=== PATIENT | male | born 1975 | race Two or more races ===

== ENCOUNTER 2022-03-28 08:53 | Emergency (ER) | payer MEDICAID ==
[2022-03-28] MEDS: Aspirin 81 MG Tab.Chew PO ONE (08:53)
[2022-03-28] MEDS: Nitroglycerin 0.4 MG Tab.SL SL ONE (09:09)
[2022-03-28] MEDS: Albuterol/Ipratropium 3.0-0.5 MG/3 ML Neb Soln NEB ONE (10:00)
[2022-03-28] MEDS: HYDROmorphone 2 MG/ML Syringe IVPUSH ONE (10:03)
[2022-03-28] MEDS: Albuterol/Ipratropium 3.0-0.5 MG/3 ML Neb Soln ONE (10:05)
[2022-03-28] MEDS: HYDROmorphone 2 MG/ML Syringe ONE (10:05)
[2022-03-28] MEDS: Dexamethasone 4 MG/ML SDV IVPUSH ONE (10:58)
[2022-03-28] MEDS: Dexamethasone 4 MG/ML 5 ML MDV IVPUSH ONE (10:58)
[2022-03-28] MEDS ORDERED: Dexamethasone 4 MG/ML SDV ONE (11:06)
== END 2022-03-28 14:00 | disposition home or self-care (01) ==
LOC: LB.ED 08:53
DX: J06.9 Acute upper respiratory infection, unspecified (principal); Z88.7 Allergy status to serum and vaccine; Z88.8 Allergy status to other drugs, medicaments and biological substances; Z79.899 Other long term (current) drug therapy; Z79.4 Long term (current) use of insulin; Z91.09 Other allergy status, other than to drugs and biological substances
CPT/HCPCS: 36415; 71045; 71250; 80053; 81001; 83880; 84484; 85025; 85379; 85610; 85730; 93005; 94640; 96374; 96375; 99285-25; A9270-GY; J1100; J1170; J7620

== ENCOUNTER 2022-04-17 13:10 | Emergency (ER) | payer MEDICAID | END 2022-04-17 15:05 | disposition home or self-care (01) | LOC: LB.ED 13:10 | DX: K08.89 Other specified disorders of teeth and supporting structures (principal); E11.9 Type 2 diabetes mellitus without complications; J45.909 Unspecified asthma, uncomplicated; Z79.4 Long term (current) use of insulin; Z88.7 Allergy status to serum and vaccine; Z88.8 Allergy status to other drugs, medicaments and biological substances | CPT/HCPCS: 99282 ==

== ENCOUNTER 2022-04-23 14:41 | Emergency (ER) | payer MEDICAID ==
[2022-04-23] MEDS ORDERED: Acetaminophen/HYDROcodone 325-5 MG Tab ONE (15:30)
[2022-04-23] MEDS ORDERED: Lidocaine 1% with EPINEPHrine 1:100,000 50 ML MDV INJECT ONE (15:35)
== END 2022-04-23 16:00 | disposition home or self-care (01) ==
LOC: LB.ED 14:41
DX: K08.89 Other specified disorders of teeth and supporting structures (principal); E11.9 Type 2 diabetes mellitus without complications; J45.909 Unspecified asthma, uncomplicated; Z79.4 Long term (current) use of insulin; Z91.048 Other nonmedicinal substance allergy status; Z88.6 Allergy status to analgesic agent; Z88.7 Allergy status to serum and vaccine
CPT/HCPCS: 64400; 99282; 99282-25; A9270-GY

== ENCOUNTER 2022-07-10 08:33 | Emergency (ER) | payer MEDICAID ==
[2022-07-10] MEDS ORDERED: methylPREDNISolone Sodium Succinate 125 MG/2 ML SDV ONE (09:05)
[2022-07-10] MEDS ORDERED: Albuterol/Ipratropium 3.0-0.5 MG/3 ML Neb Soln ONE (09:05)
[2022-07-10] MEDS ORDERED: methylPREDNISolone Sodium Succinate 125 MG/2 ML SDV IM ONE (09:06)
[2022-07-10] MEDS ORDERED: Albuterol/Ipratropium 3.0-0.5 MG/3 ML Neb Soln NEB ONE (09:07)
== END 2022-07-10 10:50 | disposition home or self-care (01) ==
LOC: LB.ED 08:33
DX: J45.901 Unspecified asthma with (acute) exacerbation (principal); E11.9 Type 2 diabetes mellitus without complications; Z88.7 Allergy status to serum and vaccine; Z88.8 Allergy status to other drugs, medicaments and biological substances; Z79.4 Long term (current) use of insulin; Z79.899 Other long term (current) drug therapy
CPT/HCPCS: 96372; 99283; 99284; J2930; J7620

== ENCOUNTER 2022-10-06 20:43 | Emergency (ER) | payer MEDICAID ==
[2022-10-06] MEDS ORDERED: Albuterol/Ipratropium 3.0-0.5 MG/3 ML Neb Soln ONE (21:34)
[2022-10-06] MEDS ORDERED: Albuterol/Ipratropium 3.0-0.5 MG/3 ML Neb Soln NEB ONE (21:45)
[2022-10-06 22:03] LABS: BASOPHILS ABSOLUTE AUTO 0.06 K/uL (0.02-0.10); BASOPHILS PERCENT AUTO 0.7 % (0.0-0.5); EOSINOPHILS ABSOLUTE AUTO 0.86 K/uL (0.04-0.40); EOSINOPHILS PERCENT AUTO 10.4 % (1.0-5.0); HEMATOCRIT 40.6 % (40.0-54.0); LYMPHOCYTES ABSOLUTE AUTO 3.05 K/uL (1.50-4.00); LYMPHOCYTES PERCENT AUTO 36.9 % (20.0-40.0); MEAN CORPUSCULAR HEMOGLOBIN 30.1 pg (27.0-32.0); MEAN CORPUSCULAR HGB CONC 36.9 g/dL (31.0-35.0); MEAN CORPUSCULAR VOLUME 82 fL (76-96); MEAN PLATELET VOLUME 10.7 fL (6.0-10.0); MONOCYTES ABSOLUTE AUTO 0.83 K/uL (0.20-0.80); NEUTROPHILS ABSOLUTE AUTO 3.46 K/uL (2.00-7.50); PLATELET COUNT,PLT 208 K/uL (150-400); RED BLOOD CELL COUNT 4.98 M/uL (4.50-6.50); RED CELL DISTRIBUTION WIDTH 12.4 % (11.0-16.0); WHITE BLOOD CELL COUNT,WBC 8.3 K/uL (4.0-11.0)
[2022-10-06 22:14] LABS: A/G RATIO 0.8 (0.8-2.0); ALBUMIN 3.5 g/dL (3.4-5.0); ANION GAP 17.9 mmol/L (5.0-15.0); BILIRUBIN TOTAL 0.9 mg/dL (0.0-1.0); BUN/CREATININE RATIO 19.8 (6-25); CALCIUM 9.2 mg/dL (8.5-10.1); CARBON DIOXIDE,CO2 19.8 mmol/L (21.0-32.0); CREATININE 1.26 mg/dL (0.70-1.30); EST CRCL DRUG DOSING (CG) 70.87 mL/min; POTASSIUM,K 3.7 mmol/L (3.5-5.1)
[2022-10-06] MEDS ORDERED: Budesonide 0.5 MG/2 ML Neb Susp NEB ONE (22:16)
[2022-10-06] MEDS ORDERED: methylPREDNISolone Sodium Succinate 125 MG/2 ML SDV ONE (22:16)
[2022-10-06] MEDS ORDERED: Budesonide 0.5 MG/2 ML Neb Susp ONE ×2 (22:17→22:30)
[2022-10-06] MEDS ORDERED: methylPREDNISolone Sodium Succinate 125 MG/2 ML SDV IM ONE (22:24)
[2022-10-06] MEDS ORDERED: Montelukast 10 MG Tab ONE (22:30)
== END 2022-10-06 22:45 | disposition home or self-care (01) ==
LOC: LB.ED 20:43
DX: J45.42 Moderate persistent asthma with status asthmaticus (principal); I10 Essential (primary) hypertension; E11.9 Type 2 diabetes mellitus without complications; Z79.4 Long term (current) use of insulin; Z79.899 Other long term (current) drug therapy; Z91.09 Other allergy status, other than to drugs and biological substances
CPT/HCPCS: 36415; 71045; 80053; 85025; 94640; 96372; 99284; J2930; 99283; A9270-GY; J7620

== ENCOUNTER 2023-02-27 11:34 | Emergency (ER) | payer MEDICAID ==
[2023-02-27] MEDS ORDERED: Sodium Chloride 0.9% 10 ML Syringe FLUSH PRN (12:01)
[2023-02-27 12:15] LABS: BASOPHILS ABSOLUTE AUTO 0.05 K/uL (0.02-0.10); BASOPHILS PERCENT AUTO 0.6 % (0.0-0.5); EOSINOPHILS PERCENT AUTO 9.1 % (1.0-5.0); HEMATOCRIT 39.4 % (40.0-54.0); HEMOGLOBIN 14.3 g/dL (13.0-18.0); LYMPHOCYTES ABSOLUTE AUTO 2.64 K/uL (1.50-4.00); LYMPHOCYTES PERCENT AUTO 34.3 % (20.0-40.0); MEAN CORPUSCULAR HEMOGLOBIN 29.7 pg (27.0-32.0); MEAN CORPUSCULAR HGB CONC 36.3 g/dL (31.0-35.0); MEAN CORPUSCULAR VOLUME 82 fL (76-96); MEAN PLATELET VOLUME 10.4 fL (6.0-10.0); MONOCYTES ABSOLUTE AUTO 0.83 K/uL (0.20-0.80); MONOCYTES PERCENT AUTO 10.8 % (3.0-10.0); NEUTROPHILS ABSOLUTE AUTO 3.48 K/uL (2.00-7.50); NEUTROPHILS PERCENT AUTO 45.2 % (45.0-70.0); PLATELET COUNT,PLT 212 K/uL (150-400); RED BLOOD CELL COUNT 4.81 M/uL (4.50-6.50); WHITE BLOOD CELL COUNT,WBC 7.7 K/uL (4.0-11.0)
[2023-02-27] MEDS: Sodium Chloride 0.9% 1,000 ML IV SCH (12:25)
[2023-02-27 12:35] LABS: A/G RATIO 1.1 (0.8-2.0); ALBUMIN 3.5 g/dL (3.4-5.0); ANION GAP 15.7 mmol/L (5.0-15.0); BUN/CREATININE RATIO 17.9 (6-25); CALCIUM 9.2 mg/dL (8.5-10.1); CARBON DIOXIDE,CO2 21.7 mmol/L (21.0-32.0); CREATININE 1.06 mg/dL (0.70-1.30); EST CRCL DRUG DOSING (CG) 80.55 mL/min; POTASSIUM,K 3.4 mmol/L (3.5-5.1); PROTEIN TOTAL,TP 6.8 g/dL (6.4-8.2)
[2023-02-27 12:36] LABS: APPEARANCE,URINE CLEAR (CLEAR); BILIRUBIN,URINE NEGATIVE (NEGATIVE); COLOR,URINE YELLOW; GLUCOSE,URINE 500 mg/dL (NEGATIVE); KETONES,URINE NEGATIVE (NEGATIVE); LEUKOCYTE ESTERASE,URINE NEGATIVE (NEGATIVE); NITRITE,URINE NEGATIVE (NEGATIVE); OCCULT BLOOD,URINE NEGATIVE (NEGATIVE); PH,URINE 6.5 (5.0-8.0); PROTEIN,URINE NEGATIVE (NEGATIVE); UROBILINOGEN,URINE 0.2 E.U./dL (0.2-1.0)
[2023-02-27 12:37] LABS: MAGNESIUM 1.5 mg/dL (1.8-2.4); PHOSPHORUS 1.3 mg/dL (2.5-4.9)
[2023-02-27] MEDS ORDERED: Sodium Phosphate 15 mMole/5 ML SDV IV STA (13:08)
[2023-02-27] MEDS: Magnesium Sulfate/Water 50 ML IV ONE (13:28)
[2023-02-27] MEDS: Magnesium Sulfate/Water 2 GM in Premix Bag 1 BAG IV ONE (13:29)
[2023-02-27] MEDS: Magnesium Sulfate/Water 50 ML ONE (13:29)
[2023-02-27] MEDS ORDERED: 50% Dextrose in Water 50 ML Syringe IVPUSH PRN (14:09)
[2023-02-27] MEDS ORDERED: Glucagon,Human Recombinant 1 MG Vial IM PRN (14:09)
[2023-02-27] MEDS: Insulin Aspart 100 Units/ML 3 ML Pen SUBCUT ONE (14:10)
[2023-02-27 14:34] LABS: INFLUENZA A NAA NEGATIVE (NEGATIVE); INFLUENZA B NAA NEGATIVE (NEGATIVE); RESPIRATORY SYNCYTIAL VIR NAA NEGATIVE (NEGATIVE)
[2023-02-27 14:39] LABS: CORONAVIRUS COVID-19 NAA NEGATIVE (NEGATIVE)
[2023-02-27] MEDS ORDERED: Sodium Phosphate 15 MMOLE in Sodium Chloride 0.9% 250 ML IV ONE (17:00)
== END 2023-02-27 14:21 | disposition home or self-care (01) ==
LOC: LB.ED 11:34
DX: E11.65 Type 2 diabetes mellitus with hyperglycemia (principal); R20.2 Paresthesia of skin; J45.909 Unspecified asthma, uncomplicated; Z88.8 Allergy status to other drugs, medicaments and biological substances; Z88.7 Allergy status to serum and vaccine; Z79.4 Long term (current) use of insulin; Z79.899 Other long term (current) drug therapy; Z20.822 Contact with and (suspected) exposure to COVID-19
CPT/HCPCS: 0241U; 36415; 70450; 80053; 81003; 82947; 83735; 84100; 85025; 96361; 96365; 99284-25; J3475; J7030

== ENCOUNTER 2023-07-17 09:58 | Emergency (ER) | payer MEDICAID ==
[2023-07-17 10:43] LABS: BASOPHILS ABSOLUTE AUTO 0.09 K/uL (0.02-0.10); BASOPHILS PERCENT AUTO 0.9 % (0.0-0.5); EOSINOPHILS ABSOLUTE AUTO 1.13 K/uL (0.04-0.40); EOSINOPHILS PERCENT AUTO 11.4 % (1.0-5.0); HEMATOCRIT 43.9 % (40.0-54.0); LYMPHOCYTES ABSOLUTE AUTO 2.61 K/uL (1.50-4.00); LYMPHOCYTES PERCENT AUTO 26.2 % (20.0-40.0); MEAN CORPUSCULAR HEMOGLOBIN 29.9 pg (27.0-32.0); MEAN CORPUSCULAR HGB CONC 36.4 g/dL (31.0-35.0); MEAN CORPUSCULAR VOLUME 82 fL (76-96); MEAN PLATELET VOLUME 10.3 fL (6.0-10.0); MONOCYTES ABSOLUTE AUTO 1.23 K/uL (0.20-0.80); MONOCYTES PERCENT AUTO 12.4 % (3.0-10.0); NEUTROPHILS ABSOLUTE AUTO 4.89 K/uL (2.00-7.50); NEUTROPHILS PERCENT AUTO 49.1 % (45.0-70.0); PLATELET COUNT,PLT 235 K/uL (150-400); RED BLOOD CELL COUNT 5.35 M/uL (4.50-6.50); RED CELL DISTRIBUTION WIDTH 12.9 % (11.0-16.0)
[2023-07-17 11:06] LABS: ALBUMIN 3.7 g/dL (3.4-5.0); ANION GAP 17.6 mmol/L (5.0-15.0); BILIRUBIN TOTAL 1.2 mg/dL (0.0-1.0); BUN/CREATININE RATIO 26.2 (6-25); CALCIUM 8.9 mg/dL (8.5-10.1); CARBON DIOXIDE,CO2 22.5 mmol/L (21.0-32.0); CREATININE 1.03 mg/dL (0.70-1.30); EST CRCL DRUG DOSING (CG) 84.33 mL/min; POTASSIUM,K 5.1 mmol/L (3.5-5.1); PROTEIN TOTAL,TP 7.4 g/dL (6.4-8.2)
== END 2023-07-17 11:30 | disposition home or self-care (01) ==
LOC: LB.ED 09:58
DX: J06.9 Acute upper respiratory infection, unspecified (principal); J45.909 Unspecified asthma, uncomplicated; E11.40 Type 2 diabetes mellitus with diabetic neuropathy, unspecified; Z79.899 Other long term (current) drug therapy; Z79.4 Long term (current) use of insulin; Z91.09 Other allergy status, other than to drugs and biological substances; Z88.7 Allergy status to serum and vaccine; Z88.8 Allergy status to other drugs, medicaments and biological substances
CPT/HCPCS: 36415; 71045; 80053; 85025; 99283